=== PATIENT | male | born 1950 | race Caucasian/White ===

== ENCOUNTER 2022-05-07 18:56 | Inpatient (IN) ==
[2022-05-07] MEDS ORDERED: Ondansetron 4 MG/2 ML VIAL IVP ONE (19:47)
[2022-05-07] MEDS ORDERED: 0.9 % Sodium Chloride 1,000 ML IV ONE (19:47)
[2022-05-07] MEDS ORDERED: Ketorolac 30 MG/ML VIAL IVP ONE (19:47)
[2022-05-07 20:08] LABS: Basophils # 0.1 K/mcL (0.0-0.2); Basophils % 0.4 %; Eosinophils # 0.1 K/mcL (0.0-0.6); Eosinophils % 0.2 %; Hematocrit 39.1 % (37.5-50.1); Hemoglobin 12.9 g/dL (12.9-16.9); Immature Granulocytes % 2.5 % (0-4); Lymphocytes # 2.4 K/mcL (0.6-4.6); Lymphocytes % 9.3 %; Mean Corpuscular Hemoglobin 27.8 pg (28.0-33.3); Mean Corpuscular Volume 84.3 fL (83.0-100.0); Mean Platelet Volume 10.3 fL (9.4-12.4); Monocytes # 1.9 K/mcL (0.0-1.3); Monocytes % 7.5 %; Neutrophils # 20.8 K/mcL (1.6-8.9); Platelet Count 480 K/mcL (140-400); Red Blood Count 4.64 M/mcL (4.19-5.50); Red Cell Distribution Width 13.9 % (11.5-14.5); Segmented Neutrophils % 80.1 %; White Blood Count 25.9 K/mcL (4.3-11.1)
[2022-05-07 20:22] LABS: Bilirubin,Urine Small (Negative); Blood,Urine Negative (Negative); Clarity,Urine Clear (Clear); Color,Urine Yellow (Yellow); Glucose,Urine (UA) Normal (Normal); Ketones,Urine 15 mg/dL (Negative); Leukocyte Esterase,Urine Negative (Negative); Nitrite,Urine Negative (Negative); PH,Urine 5.5 pH Units (5.0-8.0); Protein,Urine 30 mg/dL (Neg-Trace); Urobilinogen,Urine Normal (Normal)
[2022-05-07 20:28] LABS: Alanine Aminotransferase 8 Units/L (7-52); Albumin 3.3 g/dL (3.5-5.7); Albumin/Globulin Ratio 0.9 (1.1-2.2); Alkaline Phosphatase 78 Units/L (34-104); Aspartate Amino Transferase 11 Units/L (13-39); BUN/Creatinine Ratio 19 (6-26); Bilirubin,Total 0.3 mg/dL (0.3-1.0); Blood Urea Nitrogen 14 mg/dL (8-23); Calcium 9.1 mg/dL (8.6-10.3); Carbon Dioxide 27 mEq/L (23-29); Chloride 97 mEq/L (98-107); Globulin 3.7 g/dL (2.4-3.5); Glucose 98 mg/dL (70-105); Osmolality,Calculated 280 (280-300); Potassium 3.8 mEq/L (3.5-5.1); Sodium 135 mEq/L (136-145); eGFR For African Americans > 60 (> 60); eGFR For Non-African Americans > 60 (> 60)
[2022-05-07 20:34] LABS: Mucus,Urine Moderate per lpf (None-Few)
[2022-05-07 20:35] LABS: Hyaline Casts,Urine Few per lpf (None Seen)
[2022-05-07] MEDS ORDERED: cefTRIAXone 1,000 MG in 0.9 % Sodium Chloride Mini Bag 100 ML IVPB ONE (21:11)
[2022-05-07] MEDS ORDERED: 0.9 % Sodium Chloride 1,000 ML IVC SCH (21:15)
[2022-05-07 21:18] LABS: Platelet Estimate Increased (Normal)
[2022-05-07] MEDS ORDERED: Naloxone 0.4 MG/ML INJ IVP PRN (22:45)
[2022-05-07] MEDS: 0.9 % Sodium Chloride 1,000 ML IVC SCH (23:13)
[2022-05-07] MEDS: *HR* OxyCODONE/APAP 7.5/325 TABLET PO PRN (23:13)
[2022-05-07] MEDS ORDERED: Ipratropium/Albuterol Neb 3 ML IH PRN (23:45)
[2022-05-08] MEDS: *HR* OxyCODONE/APAP 7.5/325 TABLET PO PRN (06:00)
[2022-05-08 07:01] LABS: Basophils # 0.1 K/mcL (0.0-0.2); Basophils % 0.3 %; Eosinophils # 0.2 K/mcL (0.0-0.6); Eosinophils % 1.2 %; Hematocrit 34.9 % (37.5-50.1); Hemoglobin 11.4 g/dL (12.9-16.9); Immature Granulocytes % 1.8 % (0-4); Lymphocytes # 2.6 K/mcL (0.6-4.6); Lymphocytes % 12.8 %; Mean Corpuscular HGB Conc 32.7 g/dL (31.6-35.5); Mean Corpuscular Hemoglobin 28.2 pg (28.0-33.3); Mean Corpuscular Volume 86.4 fL (83.0-100.0); Mean Platelet Volume 10.6 fL (9.4-12.4); Monocytes % 9.2 %; Platelet Count 387 K/mcL (140-400); Red Blood Count 4.04 M/mcL (4.19-5.50); Red Cell Distribution Width 13.9 % (11.5-14.5); Segmented Neutrophils % 74.7 %
[2022-05-08 07:08] LABS: Monocytes # 1.8 K/mcL (0.0-1.3); Neutrophils # 14.9 K/mcL (1.6-8.9)
[2022-05-08 07:16] LABS: BUN/Creatinine Ratio 16 (6-26); Blood Urea Nitrogen 13 mg/dL (8-23); Calcium 8.3 mg/dL (8.6-10.3); Carbon Dioxide 27 mEq/L (23-29); Chloride 102 mEq/L (98-107); Glucose 85 mg/dL (70-105); Osmolality,Calculated 283 (280-300); Potassium 3.6 mEq/L (3.5-5.1); Sodium 137 mEq/L (136-145); eGFR For African Americans > 60 (> 60); eGFR For Non-African Americans > 60 (> 60)
[2022-05-08] MEDS: Gabapentin 300 MG CAPSULE PO SCH ×3 (10:23→21:29)
[2022-05-08] MEDS: cefTRIAXone 2,000 MG in 0.9 % Sodium Chloride Mini Bag 100 ML IVPB SCH (10:23)
[2022-05-08] MEDS: lisinopriL 20 MG TABLET PO SCH (10:23)
[2022-05-08] MEDS ORDERED: Acetaminophen 325 MG TABLET PO PRN (11:13)
[2022-05-08] MEDS ORDERED: Ketorolac 30 MG/ML VIAL IVP ONE (11:17)
[2022-05-08] MEDS: Azithromycin 500 MG in 0.9 % Sodium Chloride 250 ML IVPB SCH (11:40)
[2022-05-08 13:48] LABS: Adenovirus Not Detected (Not Detect); Coronavirus 229E Not Detected (Not Detect); Coronavirus HKU1 Not Detected (Not Detect); Coronavirus NL63 Not Detected (Not Detect); Coronavirus OC43 Not Detected (Not Detect); Human Metapneumovirus Not Detected (Not Detect); Human Rhinovirus/Enterovirus Not Detected (Not Detect); Influenza A Subtype 2009 H1 Not Detected (Not Detect); Influenza B Not Detected (Not Detect); Parainfluenza Virus 1 Not Detected (Not Detect); Parainfluenza Virus 2 Not Detected (Not Detect); Parainfluenza Virus 3 DETECTED (Not Detect); Parainfluenza Virus 4 Not Detected (Not Detect); Respiratory Syncytial Virus Not Detected (Not Detect); SARS-CoV-2 Not Detected (Not Detect)
[2022-05-08 13:49] LABS: Bordetella Pertussis Not Detected (Not Detect); Chlamydophila pneumoniae Not Detected (Not Detect); Mycoplasma pneumoniae Not Detected (Not Detect)
[2022-05-08] MEDS: 0.9 % Sodium Chloride 1,000 ML IVC SCH (15:29)
[2022-05-08] MEDS: Ipratropium/Albuterol Neb 3 ML IH SCH ×2 (16:41→21:46)
[2022-05-09] MEDS: Ipratropium/Albuterol Neb 3 ML IH SCH ×4 (03:25→21:40)
[2022-05-09] MEDS: SUMAtriptan succinate 25 MG TABLET PO PRN ×2 (04:56→20:37)
[2022-05-09] MEDS: *HR* Enoxaparin 40 MG/0.4 ML SYRINGE SQ SCH (05:52)
[2022-05-09 07:59] LABS: Basophils # 0.1 K/mcL (0.0-0.2); Basophils % 0.4 %; Eosinophils # 0.2 K/mcL (0.0-0.6); Eosinophils % 1.5 %; Hematocrit 34.4 % (37.5-50.1); Hemoglobin 11.3 g/dL (12.9-16.9); Immature Granulocytes % 2.2 % (0-4); Lymphocytes # 2.1 K/mcL (0.6-4.6); Lymphocytes % 13.4 %; Mean Corpuscular HGB Conc 32.8 g/dL (31.6-35.5); Mean Corpuscular Hemoglobin 28.4 pg (28.0-33.3); Mean Corpuscular Volume 86.4 fL (83.0-100.0); Mean Platelet Volume 10.5 fL (9.4-12.4); Monocytes # 1.5 K/mcL (0.0-1.3); Monocytes % 9.3 %; Neutrophils # 11.6 K/mcL (1.6-8.9); Platelet Count 385 K/mcL (140-400); Red Blood Count 3.98 M/mcL (4.19-5.50); Red Cell Distribution Width 14.2 % (11.5-14.5); Segmented Neutrophils % 73.2 %; White Blood Count 15.8 K/mcL (4.3-11.1)
[2022-05-09 08:15] LABS: BUN/Creatinine Ratio 12 (6-26); Blood Urea Nitrogen 8 mg/dL (8-23); Calcium 8.7 mg/dL (8.6-10.3); Carbon Dioxide 28 mEq/L (23-29); Chloride 105 mEq/L (98-107); Glucose 88 mg/dL (70-105); Osmolality,Calculated 288 (280-300); Potassium 3.7 mEq/L (3.5-5.1); Sodium 140 mEq/L (136-145); eGFR For African Americans > 60 (> 60); eGFR For Non-African Americans > 60 (> 60)
[2022-05-09] MEDS: Gabapentin 300 MG CAPSULE PO SCH ×3 (09:03→20:37)
[2022-05-09] MEDS: Azithromycin 500 MG in 0.9 % Sodium Chloride 250 ML IVPB SCH (09:04)
[2022-05-09] MEDS: lisinopriL 20 MG TABLET PO SCH (09:04)
[2022-05-09] MEDS: *HR* OxyCODONE/APAP 7.5/325 TABLET PO PRN (10:27)
[2022-05-09] MEDS: cefTRIAXone 2,000 MG in 0.9 % Sodium Chloride Mini Bag 100 ML IVPB SCH (10:28)
[2022-05-09] MEDS: Metoprolol XL (24 HR) Succ 25 MG TAB.ER.24H PO SCH (14:37)
[2022-05-10] MEDS: Ipratropium/Albuterol Neb 3 ML IH SCH ×4 (04:06→21:46)
[2022-05-10] MEDS: *HR* Enoxaparin 40 MG/0.4 ML SYRINGE SQ SCH (06:10)
[2022-05-10] MEDS: *HR* OxyCODONE/APAP 7.5/325 TABLET PO PRN ×3 (06:14→21:41)
[2022-05-10] MEDS: Metoprolol XL (24 HR) Succ 25 MG TAB.ER.24H PO SCH (07:48)
[2022-05-10] MEDS: Gabapentin 300 MG CAPSULE PO SCH ×3 (07:48→19:26)
[2022-05-10] MEDS: lisinopriL 20 MG TABLET PO SCH (07:48)
[2022-05-10] MEDS: Azithromycin 500 MG in 0.9 % Sodium Chloride 250 ML IVPB SCH (07:49)
[2022-05-10 08:16] LABS: Basophils # 0.1 K/mcL (0.0-0.2); Basophils % 0.6 %; Eosinophils # 0.4 K/mcL (0.0-0.6); Eosinophils % 2.2 %; Hematocrit 34.6 % (37.5-50.1); Hemoglobin 11.3 g/dL (12.9-16.9); Immature Granulocytes % 1.9 % (0-4); Lymphocytes # 2.2 K/mcL (0.6-4.6); Lymphocytes % 13.2 %; Mean Corpuscular HGB Conc 32.7 g/dL (31.6-35.5); Mean Corpuscular Hemoglobin 28.9 pg (28.0-33.3); Mean Corpuscular Volume 88.5 fL (83.0-100.0); Mean Platelet Volume 10.5 fL (9.4-12.4); Monocytes # 1.7 K/mcL (0.0-1.3); Neutrophils # 12.1 K/mcL (1.6-8.9); Platelet Count 394 K/mcL (140-400); Red Blood Count 3.91 M/mcL (4.19-5.50); Red Cell Distribution Width 14.2 % (11.5-14.5); Segmented Neutrophils % 72.1 %; White Blood Count 16.8 K/mcL (4.3-11.1)
[2022-05-10 08:53] LABS: BUN/Creatinine Ratio 17 (6-26); Blood Urea Nitrogen 12 mg/dL (8-23); Calcium 8.9 mg/dL (8.6-10.3); Carbon Dioxide 32 mEq/L (23-29); Chloride 104 mEq/L (98-107); Glucose 94 mg/dL (70-105); Osmolality,Calculated 294 (280-300); Potassium 3.9 mEq/L (3.5-5.1); Sodium 142 mEq/L (136-145); eGFR For African Americans > 60 (> 60); eGFR For Non-African Americans > 60 (> 60)
[2022-05-10] MEDS: cefTRIAXone 2,000 MG in 0.9 % Sodium Chloride Mini Bag 100 ML IVPB SCH (11:26)
[2022-05-10] MEDS: SUMAtriptan succinate 25 MG TABLET PO PRN (19:29)
[2022-05-10] MEDS ORDERED: *HR* Labetalol 20 MG/4 ML SYRINGE IVP ONE (22:50)
[2022-05-11] MEDS: Ipratropium/Albuterol Neb 3 ML IH SCH ×2 (04:06→09:28)
[2022-05-11 04:57] VITALS: PULSE 88
[2022-05-11 07:05] VITALS: BP 148/90; TEMP 98.4
[2022-05-11] MEDS: *HR* Enoxaparin 40 MG/0.4 ML SYRINGE SQ SCH (07:07)
[2022-05-11] MEDS: Azithromycin 500 MG in 0.9 % Sodium Chloride 250 ML IVPB SCH (07:07)
[2022-05-11 07:38] LABS: Basophils # 0.1 K/mcL (0.0-0.2); Basophils % 0.6 %; Eosinophils # 0.5 K/mcL (0.0-0.6); Eosinophils % 3.3 %; Hematocrit 35.9 % (37.5-50.1); Hemoglobin 11.6 g/dL (12.9-16.9); Immature Granulocytes % 1.6 % (0-4); Lymphocytes % 16.8 %; Mean Corpuscular HGB Conc 32.3 g/dL (31.6-35.5); Mean Corpuscular Hemoglobin 28.4 pg (28.0-33.3); Mean Platelet Volume 10.6 fL (9.4-12.4); Monocytes # 1.3 K/mcL (0.0-1.3); Monocytes % 8.1 %; Platelet Count 407 K/mcL (140-400); Red Blood Count 4.08 M/mcL (4.19-5.50); Red Cell Distribution Width 14.2 % (11.5-14.5); Segmented Neutrophils % 69.6 %; White Blood Count 15.8 K/mcL (4.3-11.1)
[2022-05-11 07:47] LABS: Lymphocytes # 2.7 K/mcL (0.6-4.6)
[2022-05-11 07:52] LABS: BUN/Creatinine Ratio 14 (6-26); Blood Urea Nitrogen 9 mg/dL (8-23); Calcium 9.2 mg/dL (8.6-10.3); Carbon Dioxide 33 mEq/L (23-29); Chloride 101 mEq/L (98-107); Glucose 90 mg/dL (70-105); Osmolality,Calculated 288 (280-300); Potassium 3.7 mEq/L (3.5-5.1); Sodium 140 mEq/L (136-145); eGFR For African Americans > 60 (> 60); eGFR For Non-African Americans > 60 (> 60)
[2022-05-11] MEDS: Metoprolol XL (24 HR) Succ 25 MG TAB.ER.24H PO SCH (08:08)
[2022-05-11] MEDS: Gabapentin 300 MG CAPSULE PO SCH (08:08)
[2022-05-11] MEDS ORDERED: lisinopriL 20 MG TABLET PO SCH (09:00)
[2022-05-11 09:30] VITALS: RESP 18
[2022-05-11] MEDS: cefTRIAXone 2,000 MG in 0.9 % Sodium Chloride Mini Bag 100 ML IVPB SCH (09:42)
[2022-05-11 10:27] VITALS: O2SAT 93
== END 2022-05-11 11:17 | disposition home or self-care (01) | DRG 871 ==
LOC: EMEROOPIK 18:56 → INPPIK 18:56
PROVIDERS: ADMIT Student in an Organized Health Care Education/Training Program; ATTEND Student in an Organized Health Care Education/Training Program